=== PATIENT | male | born 1950 | race Caucasian/White ===

== ENCOUNTER 2017-12-16 22:20 | Emergency (ER) | payer MEDICARE ==
[2017-12-17 06:49] LABS: Albumin 4.6 g/dL (3.5-5.0); C Reactive Protein 61.5 mg/L (<10.0); Calcium 9.7 mg/dL (8.4-10.2); Potassium 3.7 mmol/L (3.5-5.1); Total Bilirubin 0.5 mg/dL (0.2-1.3)
[2017-12-17 06:54] LABS: Basophils % (A) 0 %; Eosinophils % (A) 0 %; Erythrocyte Sedimentation Rate 55 mm/hr (0-15); HCT 40.6 % (39.0-53.0); HGB 13.8 gm/dL (13.0-17.5); Lymphocytes # (A) 1.4 k/uL (1.0-4.8); Lymphocytes % (A) 19 %; MCHC 33.9 g/dL (31.0-37.0); MCV 94.3 fL (80.0-100.0); Mean Platelet Volume 6.8; Monocytes # (A) 0.4 k/uL (0-1.0); Monocytes % (A) 5 %; Neutrophils # (A) 5.4 k/uL (1.3-7.7); Neutrophils % (A) 74 %; Platelet Count 272 k/uL (150-450); RBC 4.31 m/uL (4.30-5.90); RDW 13.6 % (11.5-15.5); WBC 7.3 k/uL (3.8-10.6)
== END 2017-12-17 02:30 | disposition home or self-care (01) ==
LOC: EC 22:20
DX: M75.01 Adhesive capsulitis of right shoulder (principal); Z21 Asymptomatic human immunodeficiency virus [HIV] infection status; Z87.891 Personal history of nicotine dependence
CPT/HCPCS: 36415; 80053; 85025; 85652; 86140; 96374; 96375; 99283

== ENCOUNTER → 2017-12-16 | Outpatient (CLI) | payer MEDICARE ==
--- NOTE | 2017-12-16 15:50 | XR ---
EXAMINATION TYPE: XR shoulder complete RT DATE OF EXAM: 12/16/2017 COMPARISON: NONE HISTORY: Pain TECHNIQUE: Shoulder examined in 3 FINDINGS: The humeral head articulates with the glenoid. The acromio-clavicular junction is normal. No acute fractures or dislocations are evident. On the AP projection there is increased density in the region of the distal supraspinatus tendon. Ney e calcification may be present. This is not identified on additional views. A follow up study can be performed 7-10 days from acute trauma for continued pain. IMPRESSION: 1. No acute osseous abnormality.
== END | disposition home or self-care (01) ==
LOC: RADXRMAIN 12:19
PROVIDERS: ATTEND Internal Medicine Geriatric Medicine
DX: M25.511 Pain in right shoulder (principal)

== ENCOUNTER → 2017-12-18 | Outpatient (CLI) | payer MEDICARE ==
--- NOTE | 2017-12-18 11:10 | ECHOS ---
STRESS ECHOCARDIOGRAM DATE OF SERVICE: 12/18/2017 INDICATIONS: Abnormal EKG. MEDICATIONS: BASELINE HEART RATE: 49 BASELINE BLOOD PRESSURE: 146/51 MAXIMUM HEART RATE: 128 MAXIMUM BLOOD PRESSURE: 157/64 85% MPHR: 130 100% MPHR: 153 METS: 10 MAXIMUM STAGE REACHED: III TOTAL EXERCISE TIME: 8-1/2 minutes CLINICAL INFORMATION: Baseline EKG shows sinus rhythm with right bundle branch block. Patient exercised on Farhat protocol for a total of 8-1/2 minutes achieving 10 METs, 84% of predicted maximal heart rate without chest pain or diagnostic ST-segment depression. The test was stopped at this level due to fatigue and shortness of breath. Baseline echo shows normal left ventricular size, wall motion and systolic function. Postexercise, there is normal hyperdynamic response of all segments of myocardium noted. CONCLUSIONS: 1. Good exercise tolerance. 2. Inconclusive EKG part of the stress test due to baseline EKG abnormalities. 3. Negative stress echo. MMBOBL / IJN: [id number] /
== END | disposition home or self-care (01) ==
LOC: RADNMMAIN 09:11
PROVIDERS: ATTEND Internal Medicine Geriatric Medicine
DX: R94.31 Abnormal electrocardiogram [ECG] [EKG] (principal); I45.10 Unspecified right bundle-branch block
CPT/HCPCS: 93351